=== PATIENT | male | born 1985 | race American Indian/Alaskan Native ===

== ENCOUNTER 2019-04-29 18:05 | Emergency (ER) | payer SELFPAY ==
[2019-04-29 18:16] VITALS: BP 151/82
--- NOTE | 2019-04-29 18:16 | Event Note ---
ED Screening Note Date of service: 04/29/19 Time: 18:15 ED Screening Note: 34 y/o male comes in for a painful boil under right armpit times 2 days. This initial assessment/diagnostic orders/clinical plan/treatment(s) is/are subject to change based on patients health status, clinical progression and re- assessment by fellow clinical providers in the ED. Further treatment and workup at subsequent clinical providers discretion. Patient/guardian urged not to elope from the ED as their condition may be serious if not clinically assessed and managed. Initial orders include:
== END 2019-04-29 18:53 | disposition left against medical advice (07) ==
LOC: ED 18:05
DX: L02.413 Cutaneous abscess of right upper limb (principal); Z53.21 Procedure and treatment not carried out due to patient leaving prior to being seen by health care provider